=== PATIENT | male | born 1995 | race Caucasian/White ===

== ENCOUNTER 2016-11-13 00:25 | Emergency (ER) | payer BC, OTHER ==
[~2016-11-13] VITALS: Ht 185.4 cm; Wt 100.0 kg
[2016-11-13] MEDS ORDERED: ED- HYDROcodone/ACETAMINOPHEN 5MG/325MG (NORCO) 6 TABLETS/BTL PO ONE (00:50)
[2016-11-13] MEDS ORDERED: FLUORESCEIN (FLUOR-I-STRIPS) 1 MG STRIP OU ONE (00:50)
[2016-11-13] MEDS ORDERED: TETRACAINE 0.5% OPHTHALMIC SOLUTION 4 ML BTL OU ONE (00:50)
[2016-11-13] MEDS ORDERED: [UNRECOGNIZED DRUG - OTHER] OU ONE (00:50)
[2016-11-13] MEDS ORDERED: HYDROcodone/APAP 5 MG/325 MG (NORCO) TAB PO ONE (00:50)
[2016-11-13] MEDS ORDERED: KETOROLAC 60 MG/2 ML (TORADOL) VIAL IM ONE (00:50)
[2016-11-13] MEDS ORDERED: BACITRACIN OU ONE (00:50)
[2016-11-13 01:36] VITALS: BP 117/71
== END 2016-11-13 01:37 | disposition home or self-care (01) ==
LOC: ED 00:28
DX: H16.133 Photokeratitis, bilateral (principal); S05.02XA Injury of conjunctiva and corneal abrasion without foreign body, left eye, initial encounter; S05.01XA Injury of conjunctiva and corneal abrasion without foreign body, right eye, initial encounter; W89.0XXA Exposure to welding light (arc), initial encounter; Y93.89 Activity, other specified; Y92.63 Factory as the place of occurrence of the external cause; Y99.0 Civilian activity done for income or pay
CPT/HCPCS: 96372; 99283; J1885